=== PATIENT | female | born 1965 | race Caucasian/White ===

== ENCOUNTER → 2019-11-21 12:55 | Outpatient (CLI) | payer OTHER, SELFPAY ==
[2018-12-19 13:05] VITALS: BMI 30.9
[2019-11-21 15:14] LABS: Absolute Lymphocyte Count 2.87 X10^3/uL (0.83-4.51); Absolute Neutrophil Count 3.6 X10^3/uL (2.0-7.7); Basophil# 0.05 X10^3/uL; Basophil% 0.7 % (0-1); Eosinophil# 0.18 X10^3/uL; Eosinophils% 2.5 % (0-5); Hemoglobin 13.9 g/dL (12.0-15.0); Lymphocyte # 2.87 X10^3/ul (4.0); Lymphocyte % 39.6 % (19-41); Mean Corp Hgb Conc 31.6 g/dL (32-36); Mean Corpuscular Hgb 29.8 pg (27.0-32.0); Mean Corpuscular Volume 94.4 fL (81-99); Mean Platelet Vol. 10.6 fl (6.2-12.0); Monocyte# 0.49 X10^3/uL; Monocyte% 6.8 % (0-10); NRBC Flagged by Analyzer 0 % (0-5); Neutrophil # 3.64 X10^3/uL (2.7-7.7); Neutrophil % 50.1 % (47-70); Platelet Count 362 K/mm3 (150-450); RBC Distribution Width CV 12.1 % (11.6-14.6); RBC Distribution Width SD 42.4 fl (35.1-43.9); Red Blood Count 4.66 M/mm3 (4.2-5.4); White Blood Count 7.3 K/mm3 (4.4-11.0)
[2019-11-21 15:48] LABS: AST(SGOT) 25 U/L (15-37); Alanine Aminotransfer ALT/SGPT 25 U/L (13-56); Albumin, Serum 3.6 g/dL (3.2-5.0); Alkaline Phosphatase 86 U/L (45-117); Amylase 28 U/L (25-115); Anion Gap 8 (5-15); BUN 10 mg/dL (7-18); BUN/Creat Ratio 10.5 RATIO (10-20); Calcium,Total 8.9 mg/dL (8.5-10.1); Chloride 100 mmol/L (98-107); Creatinine, Serum 0.95 mg/dL (0.55-1.02); EST Glomerular Filtration Rate 65 mL/min (>60); Est Glom Filt Rate - Afr Amer 79 mL/min (>60); Globulin 3.7 g/dL (2.2-4.2); Glucose 86 mg/dL (74-106); Lipase 78 U/L (73-393); Potassium 3.9 mmol/L (3.5-5.1); Protein, Total 7.3 g/dL (6.4-8.2); Sodium Level 134 mmol/L (136-145)
== END ==
PROVIDERS: PCP Family Medicine; Referring Provider Family Medicine; Visit Provider Family Medicine
DX: R10.9 Unspecified abdominal pain (principal)
CPT/HCPCS: 36415; 80053; 82150; 83690; 85025

== ENCOUNTER → 2019-12-07 07:52 | Outpatient (CLI) | payer OTHER, SELFPAY ==
[2018-12-19 13:05] VITALS: BMI 30.9
--- NOTE | 2019-12-07 07:55 | US_ITS ---
STUDY: ABDOMINAL ULTRASOUND - RIGHT UPPER QUADRANT REASON FOR VISIT: Female, 54 years old RUQ PAIN TECHNIQUE: Ultrasound evaluation of the right upper quadrant was performed with real-time and static gilman-scale imaging. TECHNICAL QUALITY: Adequate. COMPARISON: None. FINDINGS: Liver: The liver measures 13.1 cm. There is increased echogenicity consistent with fatty infiltration. The bile ducts are within normal limits. There is hepatic color flow. The direction of portal flow is hepatopetal. There is no demonstrated mass lesion. Gallbladder: Normal distended gallbladder. The gallbladder wall measures 2 mm. There is a negative sonographic Gallagher''s sign. There is no pericholecystic fluid. There are multiple echogenic structures within the gallbladder, consistent with multiple gallstones. Common Bile Duct (C.B.D.): The common bile duct measures 3 mm. Pancreas: Normal size of the head, body and tail of the pancreas. There is normal echogenicity of the pancreas. There is no demonstrated pancreatic mass or cyst. Right Kidney: Normal size of the right kidney. The right kidney measures 9.7 cm. Normal renal cortex. The right cortex measures 1. cm. There is no demonstrated renal mass or cyst. There is no right hydronephrosis. US/Abdomen Limited IMPRESSION: 1. Cholelithiasis. 2. Fatty infiltration liver. Electronically Signed: Tonio Bar MD at 17:04 EDT Tel , Service support ,
== END ==
PROVIDERS: PCP Family Medicine; Referring Provider Family Medicine; Visit Provider Family Medicine
DX: R10.9 Unspecified abdominal pain (principal)
CPT/HCPCS: 76705

== ENCOUNTER 2020-01-02 09:55 | Day surgery (SDC) | payer OTHER, SELFPAY ==
[2019-12-19 13:53] VITALS: BMI 29.7
--- NOTE | 2020-01-02 07:39 | HP_ITS ---
Intake Vital Signs 12/19/19 Height 5 ft 5 in 12/19/19 Weight: 179 lb 2 oz 12/19/19 BMI 29.7 12/19/19 BP 138/84 H 12/19/19 Blood Pressure Location Rt brachial 12/19/19 Position Sitting 12/19/19 Respiration 18 12/19/19 Pulse 112 H 12/19/19 Pulse Source Monitor 12/19/19 Temp 97.4 F L 12/19/19 Temp Source Temporal 12/19/19 Pulse Oximetry (%) 96 12/19/19 Oxygen Delivery Method room air Intake Visit Reasons: Gall Stones Chief Complaint: cholelithiasis Freight Weigher Required: No Is patient in pain?: No Allergies Sulfa (Sulfonamide Antibiotics) Adverse Reaction (Verified 12/19/19 13:56) Swelling Medications acetaminophen 500 mg tablet 1,000 mg PO DAILY PRN tab 12/19/19 [History Confirmed 12/19/19] desvenlafaxine 100 mg tablet,extended release 24 hr 100 mg PO DAILY 12/19/19 [History Confirmed 12/19/19] ibuprofen 800 mg tablet 800 mg PO DAILY PRN tab 12/19/19 [History Confirmed 12/19/19] pantoprazole 40 mg tablet,delayed release 40 mg PO DAILY #30 tab 12/19/19 [Rx Confirmed 12/19/19] PFSH Medical History URI, acute (Acute) Abdominal bloating (Acute) Anxiety and depression (Acute) Belching (Acute) Cholelithiasis (Acute) Diarrhea (Acute) History of stroke (Acute) Nausea (Acute) history of heart surgery as child (Acute) Chronic neck and back pain (Chronic) Surgical History (Updated 12/19/19 @ 13:51 by Myra Hanson) History of heart surgery (Acute) Family History (Updated 12/19/19 @ 13:53 by Myra Hanson) Aunt Breast cancer Grandfather Colon cancer Mother Cancer kidney cancer Hypertension Kidney disease Father Diabetes Social History (Updated 12/19/19 @ 14:[address] Deepika Werner MD) Smoking Status: Former smoker alcohol intake: never substance use type: does not use HPI HPI HPI: OLIVIA SALINAS, is a 54 F who presents to the office today for HPI HPI Surgical H&P: Yes HPI: OLIVIA SALINAS, is a 54 F who presents to the office today for gallstones. Patient states about 5 weeks ago she ate at [facility] and had diarrhea, nausea, vomiting, fever, chills, mid abdominal pain/pressure and abdominal bloating question whether she had food poisoning. However since then patient continues to have the abdominal pressure/some aching and early satiety patient also complains of belching. Patient states currently her stools are formed smaller in size but she is also not eating much. Was occasionally having loose stools. Patient will have occasional nausea and vomiting. Patient states her abdominal aching or pressures can get up to a 6/10. States it can be worse after eating but does not matter what she has to eat. Patient had an ultrasound the gallbladder which showed a few small gallstones normal wall, no pericholecystic fluid, normal common bile duct. Patient's labs white blood cell count and LFTs were within normal range. ROS General General: Yes weight change and fatigue; no appetite, colon cancer, breast cancer or weakness HEENT HEENT: No difficulty swallowing, eye injury, eye surgery, swollen glands or hoarseness Endo Endocrine: No thyroid disease, diabetes mellitus, thyroid cancer, Hair loss, heat intolerance or cold intolerance Skin Skin: No rash or changing moles Breast Breast: No left breast lump, right breast lump, nipple discharge, breast pain, abnormal mammogram, abnormal US or breast enlargement Musc Musculoskeletal: No back problems, arthritis, rheumatoid arthritis, gout or joint pain Cardio Cardiovascular: No pacemaker, heart disease, atrial fibrillation, high blood pressure, heart attack, heart stent, palpitations, shortness of breat with exertion or chest pain Psych Psychiatric: Yes depression and anxiety; no hearing voices Resp Respiratory: No shortness of breath, No sleep apnea, No cough, No COPD, No asthma, No emphysema, No wheezing Gastro Gastrointestinal: Yes abdominal pain, Yes nausea or vomiting, Yes diarrhea, No constipation, No blood in stool, No acid reflux, No hemorrhoids, No ulcers, Yes gallbladder problem, No black,tarry stools Jai Hematologic: No blood thinners, No blood disorders, No bleeding, No anemia, No blood clots Neuro Neurologic: No system reviewed and no additional complaints, except as docu, No as per HPI, No abnormal walking, No abnormal hearing, No abnormal movements, No abnormal speech, No behavioral changes, No burning sensations, No confusion, No seizure-like activity, No unsteadiness, No dizziness, No localized weakness, No frequent falls, No headache(s), No lack of coordination, No loss of vision, No memory loss, No numbness, No other visual disturbances, No radiating pain, No restless legs, No sensory deficit, No fainting, No tingling, No tremor(s), No weakness, Yes other (Stroke) Exam Const General: cooperative, comfortable, no acute distress, well developed Chest Breast Palpation: No nipple discharge Resp Effort & Inspection: normal respiratory effort Cardio Rate: regular rate GI Inspection: non-distended Palpation: soft, no guarding, tender (On exam minimal tender RLQ/mid quad--but repeat nontender) Assessment & Plan Problems 1. Abdominal bloating R14.0 2. Abdominal pressure R10.9 3. N&V (nausea and vomiting) R11.2 4. Cholelithiasis K80.20 Plan Patient does seem to have the pressure and bloating even when she has not ate. The history is a little atypical for gallstones and the gallbladder also appears normal on ultrasound with a few gallstones but normal wall, no pericholecystic fluid. Discussed with patient this could be more of a gastric etiology. We will plan to start patient on Protonix 40 mg p.o. daily okay to take famotidine 20 mg p.o. daily for the first couple of days as well. We will plan for an EGD. Discussed with patient that if her symptoms are not improved and the EGD is negative would plan to remove her gallbladder at that time. Patient was agreeable with plan. I have discussed the above with the patient. I have offered the patient EGD for evaluation. I have explained the risks/benefits of the procedure and described the procedure. I have discussed the risks with the patient, including but not limited to: infection, bleeding, perforation of the GI tract requiring emergency surgery, inability to complete the procedure, injury to any internal organs, complications of anesthesia, etc. - the patient understands and agrees to proceed. I have answered all the patient's questions to the patient's satisfaction and the patient has no further questions. Deepika Werner M.D. Pager: [phone] [facility] [address] [place] [address], [facility], [address] [place] [address] Office: [phone] Orders Orders: EGD Today Medications New: pantoprazole 40 mg PO DAILY 30 tabs 1RF Coding Level of Care Code Off vis,new,level 3 Diagnoses Abdominal bloating R14.0 Abdominal pressure R10.9 N&V (nausea and vomiting) R11.2 Cholelithiasis K80.20 COVID (Procedure Consent) Procedure Criteria Procedure Criteria: Yes Elective The surgeon/proceduralist and patient have discussed in detail the risk of exposure to and/or potential harm posed by the COVID-19 virus with having a surgery/procedure at this time versus the risk of? delaying the surgery/procedure. It is not possible to know either the risk of delaying the surgery or procedure or chance of getting an infection with perfect accuracy, but a joint decision was made between the patient and the surgeon/proceduralist ?to proceed at this time with the scheduled surgery/procedure as indicated on the consent form. I have re-examined the patient. There are no clinical changes since date of exam.
[2020-01-02 10:11] VITALS: BP 123/81; PULSE 85; RESP 16; TEMP 36; O2SAT 99; BMI 29.4
[2020-01-02] MEDS: Lactated Ringers 1,000 ML 100 ML IV (10:26)
--- NOTE | 2020-01-02 10:45 | IMM_PTH ---
PATIENT: OLIVIA SALINAS LOC: EN U#:[id number] AGE/SX: 54/F ROOM: RE01/02/[address]: Dr. Deepika Werner MD : 1965 BED: DIS: 01/02/2020 SPEC #: [id number] RECD: 01/03/20 08:50 STATUS: CATHERINE REQ #: [id number] NATHAN: 01/02/20 10:[address]: Deepika Werner DEPT: IMMUNOHISTOCHEMISTRY RECD BY: Rachel Stephenson ENTERED: 01/03/20 08:51 SP TYPE: IMMUNO OTHR DR: Dr. Roni Bowman MD Tissues: A - Pyloric portion of stomach Procedures: H Pylori (initial) PHYSICIAN & INSTITUTION [place] [address] SPECIMEN INFORMATION: Tissue Source: A - Prepyloric biopsy Clinical Info: Abdominal bloating and pressure, nausea, vomiting, cholelithiasis Specimen Number: [id number] CPT code: 86866 METHODOLOGY: Deparaffinized sections of prefer/formalin-fixed tissue or PAP/DQ stained slides are incubated with monoclonal/polyclonal antibodies/oligonucleotide probes. Localization is made via biotin free immunoperoxidase method. Appropriate controls are performed and reacted as expected. Results on target cell population are indicated in the following table: RESULTS: ANTIBODY / CLONE RESULT Block A H Pylori (polyclonal) negative These tests were developed and their performance characteristics determined by [facility]. They may not have been cleared or approved by the U.S. Food and Drug Administration. The FDA has determined that such clearance or approval is not necessary. INTERPRETATION: A. Prepyloric biopsy: Negative for Helicobacter pylori organisms. AM:nae 01/04/20
--- NOTE | 2020-01-02 10:45 | EGD_PTH ---
PATIENT: OLIVIA SALINAS LOC: EN U#:[id number] AGE/SX: 54/F ROOM: RE01/02/[address]: Dr. Deepika Werner MD : 1965 BED: DIS: 01/02/2020 SPEC #: [id number] RECD: 01/02/20 13:27 STATUS: CATHERINE REHiro #: [id number] NATHAN: 01/02/20 10:[address]: Deepika Werner DEPT: SURGICAL PATHOLOGY RECD BY: Holly Chilel ENTERED: 01/03/20 07:27 SP TYPE: EGD BIOPSY JOSE DR: Dr. Roni Bowman MD Tissues: A - Gastric mucous membrane B - Gastric mucous membrane Procedures: Special Stain Group II Surgery Specimen Level IV Alcian Blue/PAS (control) HEADER OPERATION: EGD ([facility] [place] PRE-OP DIAGNOSIS: Abdominal bloating and pressure, nausea, vomiting, cholelithiasis TISSUE SUBMITTED: A - Prepyloric biopsy for H. pylori and pathology, B - GE junction biopsy MICROSCOPIC DIAGNOSIS A. Prepyloric biopsy: Chronic gastritis. See comment. B. GE junction, biopsy: A fragment of gastric mucosa with chronic inflammation. No evidence of goblet cell metaplasia. See comment. IMMANUEL:nae 01/04/20 COMMENT A. The results of immunohistochemistry for Helicobacter pylori will be reported separately ([id number]). B. Alcian blue/PAS stain with matched control supports the above diagnosis. MICROSCOPIC DESCRIPTION Slides are reviewed. GROSS DESCRIPTION A - Received in fixative is one container labeled with the patient's name and designated prepyloric biopsy. The specimen consists of two irregular fragments of light brown soft tissue that in aggregate measure 0.5 x 0.5 x 0.1 cm. The specimen is totally submitted in one cassette. B - Received in fixative is one container labeled with the patient's name and designated GE junction biopsy. The specimen consists of one irregular fragment of light brown soft tissue that measures 0.5 x 0.2 x 0.1 cm. The specimen is totally submitted in one cassette. / AM:nae 01/03/20 TC:3 CPT: 62505 x2, 77162
[2020-01-02 11:49] VITALS: BP 105/69; BP 123/81; PULSE 86; RESP 16; TEMP 36.8; O2SAT 97
--- NOTE | 2020-01-02 11:52 | OP.EGD_ITS ---
Patient Name: Radha Hernandez Procedure Date: 01/02/2020 11:17 AM Date of : 1965 Age: 54 Procedure: Upper GI endoscopy Indications: Epigastric abdominal pain Providers: Deepika Werner MD Referring MD: Christopher Bowman Medicines: Monitored Anesthesia Care Patient Profile: This is a 54 year old female. Complications: No immediate complications. Procedure: Pre-Anesthesia Assessment: - Prior to the procedure, a History and Physical was performed, and patient medications and allergies were reviewed. The patient's tolerance of previous anesthesia was also reviewed. The risks and benefits of the procedure and the sedation options and risks were discussed with the patient. All questions were answered, and informed consent was obtained. Prior Anticoagulants: The patient has taken no previous anticoagulant or antiplatelet agents. ASA Grade Assessment: Per anesthesia. After reviewing the risks and benefits, the patient was deemed in satisfactory condition to undergo the procedure. After obtaining informed consent, the endoscope was passed under direct vision. Throughout the procedure, the patient's blood pressure, pulse, and oxygen saturations were monitored continuously. The Endoscope was introduced through the mouth, and advanced to the second part of duodenum. The upper GI endoscopy was accomplished without difficulty. The patient tolerated the procedure well. Scope In: 11:33:42 AM Scope Out: 11:41:51 AM Total Procedure Duration Time 0 hours 8 minutes 9 seconds Findings: The Z-line was variable and was found 35 cm from the incisors. Biopsies were taken with a cold forceps for histology. Localized mildly erythematous mucosa without bleeding was found in the prepyloric region of the stomach. Biopsies were taken with a cold forceps for histology. Biopsies were taken with a cold forceps for Helicobacter pylori cultures. A few localized, less than 5 mm non-bleeding erosions were found in the prepyloric region of the stomach. There were no stigmata of recent bleeding. Biopsies were taken with a cold forceps for histology. Biopsies were taken with a cold forceps for Helicobacter pylori cultures. The cardia and gastric fundus were normal on retroflexion. Mildly erythematous mucosa without active bleeding and with no stigmata of bleeding was found in the duodenal bulb. Impression: - Z-line variable, 35 cm from the incisors. Biopsied. - Erythematous mucosa in the prepyloric region of the stomach. Biopsied. - Non-bleeding erosive gastropathy. Biopsied. - Erythematous duodenopathy. Recommendation: - Await pathology results. - Discharge patient to home. - Resume previous diet. - Use Protonix (pantoprazole) 40 mg PO daily. - Continue present medications. Procedure Code(s): --- Professional --- 47142, Esophagogastroduodenoscopy, flexible, transoral; with biopsy, single or multiple Diagnosis Code(s): --- Professional --- K22.8, Other specified diseases of esophagus K31.89, Other diseases of stomach and duodenum R10.13, Epigastric pain CPT copyright 2017 [employer]. All rights reserved. The codes documented in this report are preliminary and upon cpc coder review may be revised to meet current compliance requirements. MD Deepika Hernandes MD 01/02/2020 11:52:15 AM This report has been signed electronically. Number of Addenda: 0 Note Initiated On: 01/02/2020 11:17 AM
--- NOTE | 2020-01-02 11:52 | OP.CCLET_ITS ---
01/02/2020 Christopher Bowman [address] [place] [address] Re : Upper GI endoscopy procedure for Radha Hernandez Dear Dr. Bowman This procedure was performed on Thursday, January 02, 2020. My impressions and recommendations are as follows: Impressions : - Z-line variable, 35 cm from the incisors. Biopsied. - Erythematous mucosa in the prepyloric region of the stomach. Biopsied. - Non-bleeding erosive gastropathy. Biopsied. - Erythematous duodenopathy. Recommendations : - Await pathology results. - Discharge patient to home. - Resume previous diet. - Use Protonix (pantoprazole) 40 mg PO daily. - Continue present medications. My findings are described in the full procedure note, which is enclosed. If I can be of further assistance, please feel free to contact me at Doctor phone number(s): , Work: . Sincerely, MD Deepika Hernandes MD 01/02/2020 11:52:15 AM This report has been signed electronically.
[2020-01-02 11:55] VITALS: BP 104/77; BP 123/81; PULSE 83; RESP 16; O2SAT 99
[2020-01-02 12:05] VITALS: BP 117/82; BP 123/81; PULSE 71; RESP 16; TEMP 36.4; O2SAT 97
[2020-01-02 12:44] VITALS: BP 123/81
== END 2020-01-02 13:10 | disposition home or self-care (01) ==
LOC: EN 09:56 → AC 09:56
PROVIDERS: PCP Family Medicine; Referring Provider Family Medicine; Visit Provider Surgery
PROC: 0DJ08ZZ Inspection of Upper Intestinal Tract, Via Natural or Artificial Opening Endoscopic (ICD-10-PCS; CPT 43235; principal; 2020-01-02 10:40)
DX: K29.50 Unspecified chronic gastritis without bleeding (principal); Z20.828 Contact with and (suspected) exposure to other viral communicable diseases; K31.89 Other diseases of stomach and duodenum; K22.8 Other specified diseases of esophagus; Z79.899 Other long term (current) drug therapy; F17.200 Nicotine dependence, unspecified, uncomplicated
CPT/HCPCS: 43239; 87426; 88305; 88313; 88342; C9803; J7120

== ENCOUNTER → 2020-05-06 16:42 | Outpatient (CLI) | payer OTHER, SELFPAY ==
--- NOTE | 2020-05-06 16:47 | RAD_ITS ---
STUDY: X-RAY - LEFT SHOULDER REASON FOR EXAM: Female, 54 years old. Ane. Limited range of motion. TECHNIQUE: 4 view(s) of the shoulder. COMPARISON: None. FINDINGS: Normal glenohumeral articulation. There is degenerative arthrosis of the acromioclavicular joint without inferior osseous spur formation. There is a curved undersurface of the acromion consistent with a Type II morphology. There is no acute fracture, dislocation or destructive osseous pathology. Normal humeral head and visualized proximal humerus. The soft tissue structures are unremarkable. Normal visualized pulmonary apex. RAD/Shoulder min 2 Views IMPRESSION: Degenerative changes of the acromioclavicular joint. Electronically Signed: Ole Baez DO at 22:42 EDT Tel [phone], Service support ,
== END ==
PROVIDERS: PCP Family Medicine; Referring Provider Family Medicine; Visit Provider Family Medicine
DX: M25.512 Pain in left shoulder (principal)
CPT/HCPCS: 73030

== ENCOUNTER → 2020-06-03 | Outpatient (CLI) | payer OTHER, SELFPAY ==
[2020-06-03 14:32] VITALS: BMI 29.4
[2020-06-06 16:20] LABS: HPV APTIMA, High Risk Positive (Negative)
== END | disposition home or self-care (01) ==
LOC: LABSPEC 16:01
PROVIDERS: PCP Family Medicine; Referring Provider Nurse Practitioner Women's Health; Visit Provider Nurse Practitioner Women's Health
DX: Z12.4 Encounter for screening for malignant neoplasm of cervix (principal)
CPT/HCPCS: 87624; 88175; G0145

== ENCOUNTER → 2020-06-19 | Outpatient (CLI) | payer OTHER, SELFPAY ==
--- NOTE | 2020-06-19 | IMM_PTH ---
PATIENT: OLIVIA SALINAS LOC: [facility] U#:[id number] AGE/SX: 54/F ROOM: RE06/19/[address]: Dr. Brooke Deras MD : 1965 BED: DIS: 06/19/2020 SPEC #: [id number] RECD: 06/20/20 12:08 STATUS: CATHERINE REQ #: [id number] NATHAN: 06/19/20 00:[address]: Brooke Deras DEPT: IMMUNOHISTOCHEMISTRY RECD BY: Rachel Stephenson ENTERED: 06/20/20 12:09 SP TYPE: IMMUNO OTHR DR: Dr. Roni Bowman MD Tissues: A - Uterine cervix, NOS B - Endocervical Procedures: p16 (initial) KI-67 (add) PHYSICIAN & INSTITUTION [place] [address] SPECIMEN INFORMATION: Tissue Source: A - Cervix at 12, 3 & 9 o?clock, B - ECC Clinical Info: ASCUS, HPV positive Specimen Number: [id number] A & B CPT code: 34491 x2, 06721 x2 METHODOLOGY: Deparaffinized sections of prefer/formalin-fixed tissue or PAP/DQ stained slides are incubated with monoclonal/polyclonal antibodies/oligonucleotide probes. Localization is made via biotin free immunoperoxidase method. Appropriate controls are performed and reacted as expected. Results on target cell population are indicated in the following table: RESULTS: ANTIBODY / CLONE RESULT Block A P16 (E6H4) positive, block staining Ki-67 (30-9) positive, high Block B P16 (E6H4) positive, block staining Ki-67 (30-9) positive, high These tests were developed and their performance characteristics determined by [facility]. They may not have been cleared or approved by the U.S. Food and Drug Administration. The FDA has determined that such clearance or approval is not necessary. The above immunohistochemical/dualISH markers are ordered and reviewed by the Pathologist. INTERPRETATION: A. Cervix at 12, 3 & 9 o?clock, biopsy: Moderate to severe squamous dysplasia. B. ECC: Severe squamous dysplasia. SJ:nae 06/23/2020
--- NOTE | 2020-06-19 | CER_PTH ---
PATIENT: OLIVIA SALINAS LOC: [facility]#:[id number] AGE/SX: 54/F ROOM: RE06/19/[address]: Dr. Brooke Deras MD : 1965 BED: DIS: 06/19/2020 SPEC #: [id number] RECD: 06/19/20 13:58 STATUS: CATHERINE REHiro #: [id number] NATHAN: 06/19/20 00:[address]: Brooke Deras DEPT: SURGICAL PATHOLOGY RECD BY: Marco Monae ENTERED: 06/19/20 13:59 SP TYPE: CERV OTHR DR: Dr. Roni Bowman MD Tissues: A - Uterine cervix, NOS B - Uterine cervix, NOS Procedures: Surgery Specimen Level IV HEADER OPERATION: Colposcopy PRE-OP DIAGNOSIS: ASCUS, HPV positive TISSUE SUBMITTED: A - 12, 3 and 9 o?clock, B - ECC MICROSCOPIC DIAGNOSIS A. 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 Chronic inflammation. See comment. B. ECC: Detached unoriented fragment of squamous epithelium with severe squamous dysplasia (HGSIL and SUMAN III). Fragments of benign endocervical epithelium, blood and mucous. See comment. SJ:rg 06/20/2020 COMMENT A & B. Immunohistochemistry ([id number]) for surrogate HPV marker (p16) supports the above diagnosis. Case has been reviewed in consultation with Dr. Woods who concurs with the above diagnosis. IDC:AM MICROSCOPIC DESCRIPTION Slides are reviewed. GROSS DESCRIPTION A - Received in fixative is one container labeled with the patient's name and designated 12, 3 and 9 o'clock. The specimen consists of multiple irregular fragments of brown-pink soft tissue mixed with mucoid tissue that in aggregate measure 1 x 1 x 0.2 cm. The specimen is totally submitted in one cassette. B - Received in fixative is one container labeled with the patient's name and designated ECC. The specimen consists of a scant amount of soft tissue. The specimen is totally submitted for cell block preparation. / AVANI:nae 06/19/20 TC:1 CPT: 34713 x2
[2020-06-19 09:21] VITALS: BMI 29.5
== END | disposition home or self-care (01) ==
LOC: LABSPEC 13:29
PROVIDERS: PCP Family Medicine; Visit Provider Obstetrics & Gynecology
DX: R87.619 Unspecified abnormal cytological findings in specimens from cervix uteri (principal)
CPT/HCPCS: 88305; 88341; 88342

== ENCOUNTER 2020-06-23 15:00 | Outpatient (RCR) | payer OTHER, SELFPAY ==
--- NOTE | 2020-03-06 13:41 | HP.PTEVAL_ITS ---
Patient's Visit Information OLIVIA SALINAS is a 54 year old F referred to Physical Therapy by Dr. Christopher Bowman MD with a diagnosis of L shoulder bursitis. Date of Evaluation: 03/06/20 Physical Therapist: Kevin Maldonado, DPT, OCS, CSCS - Visit Plan Frequency: 3x /Week Duration: 2-4 Weeks Plan: 3x/week for 2-4 weeks for. 1. activity modification for impingemnet L shoulder. 2. US nonthermal L shoulder biceps tendon. 3. grade 1-2 g-h mobs for pain and CFM as needed. PROM L shoulder. 4. postural and RC strength to HEP to [place] as she improves. - Subjective L shoulder pain since early November into upper arm. Worsened as time went on but insidious onset. Was doing a lot of home remodellign at the time but no specific incident. Is R handed. Pain is upper arm and shoulder. Hard to get hand behind back and hard to reach [place]. Hurts to try adn push these further. Comfortable at rest. Pain is up to 9/10 if tries bjorn move it too far. Keeps up at night if rolls on it. 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 Basic ADLs is hard to put bra on and hard to get shirt off. Reaching up into closet is hard but she uses strong hand. Hobbies include studying language which she can do. Home improvements stopped due to shoulder. - Pain R shouldr Pain Intensity (Out of 10): 0 Pain Intensity Range: 0, 9 - Objective Forward head adn shoulder posture, protracted scap. Cervical aROM WFL adn painfree. elbow and wrist AROM WFL adn painfree. + speeds, + HK, + neer on L and - ext rotation lag test. Tender max over biceps tendon and supra on L. AROM R shoulder WFL, L shoulder flexion 125, abd 125, er 35, IR PSIS, PROM slightly better but firm end feel and stiffened up. reflexes 2/3 bi and tri B. Sensation WNl to gross light touch B. Strength is L shoulder flex abd painful and 3/5. ext rotation, max painful 3, IR 34-. R shoulder 4+/5 without pain. - Goals Goal 1:: shave armpit and take shirt off without noticing L arm pain. Goal 2:: Pt feel 75% better in shoulder pain at 2/10 at worst adn manageable Goal Time Frame: 2-4 Weeks Goal 3:: Quick dash 15 or less Goal Time Frame: 2-4 Weeks - Rehabilitation Potential Physical Therapy Diagnosis: L shuolder pain bursitis vs biceps tendonitis. Rehabilitation Potential: Good - Anticipated Interventions Patient/Client Instruction: Educate patient on: Condition, Plan of Care For the Purpose of:: To decrease pain, To increase ROM, To increase tolerance to activity/condition/position Therapeutic Exercise to Include: Strength training, Postural training, Flexibilty training, Passive ROM, Active ROM, Scapular Strength/Stabilization For the Purpose of:: To decrease pain, To increase ROM, To improve muscle performance and motor function, To increase tolerance to activity/condition/position Manual Therapy Techniques to Include: Mobilization, Passive ROM, Soft tissue mobilization For the Purpose of:: To decrease pain, To increase ROM Cryotherapy (ice pack, ice massage): Yes Ultrasound (thermal/non thermal): Yes - non thermal For the Purpose of:: To decrease pain, To decrease swelling/inflammation Thank you for the opportunity to evaluate your patient. For Medicare and Medicare HMO plans, please review the plan of care and approve it. It will need to be FAXED BACK to us at [phone] for Medicare purposes. For Medicare only, by signing this I certify the plan of care. Please let me know if there are questions or concerns regarding this plan of care. Physician Signature: Date:
--- NOTE | 2020-03-28 09:53 | HP.PTREVAL ---
Dr. Christopher Bowman MD, It has been my pleasure to treat OLIVIA SALINAS over the last 7 visits for L shoulder bursitis. Please see the progress note below for an update on the physical therapy plan of care! Subjective: Better. I have more movement adn behind back better. Still challenging on sports bra. Can lift high. Obeying activity modification. Doing band and stretches at home. Objective/Function: 130 flexion adn 105 abd AROM . PROM to 130 and 15 but firm endfeel. Capsulitis type endfeel. Strength is 4/5 withotu pain except slight with flexion. ER 45 AROM and 50 PROM. IR to PSIS, improving. Overall paina nd strength better but feeling tight end ranges of motion despite some rOM improvements in measurements. Appropriate to continue 2 weeks Plan Plan: Pt can do strength at home. Please focus on MH, grade 4 g-h mobs and PROM to felxions/abd, er, IR and progress HEP of aggressive ROM(gave flexion today) May do Pulleys and stick also. Goals appropriate, fair prognosis Goals Goal 1:: shave armpit and take shirt off without noticing L arm pain. Goal Progress: Progressing Goal 2:: Pt feel 75% better in shoulder pain at 2/10 at worst adn manageable Goal Time Frame: 2-4 Weeks Goal Progress: Progressing Goal 3:: Quick dash 15 or less Goal Time Frame: 2-4 Weeks Goal Progress: Progressing Goal 4:: Full aROM to 150 flexiona dn abd and 65 ext rotation without pain to facilitate jog bra donning and reaching into cupboard. Goal Time Frame: 2-4 Weeks Goal Progress: NEW GOAL Anticipated Interventions Patient/Client Instruction: Educate patient on: Condition, Plan of Care For the Purpose of:: To decrease pain, To increase ROM, To increase tolerance to activity/condition/position Therapeutic Exercise to Include: Strength training, Postural training, Flexibilty training, Passive ROM, Active ROM, Scapular Strength/Stabilization For the Purpose of:: To decrease pain, To increase ROM, To improve muscle performance and motor function, To increase tolerance to activity/condition/position Manual Therapy Techniques to Include: Mobilization, Passive ROM, Soft tissue mobilization For the Purpose of:: To decrease pain, To increase ROM Cryotherapy (ice pack, ice massage): Yes Ultrasound (thermal/non thermal): Yes - non thermal For the Purpose of:: To decrease pain, To decrease swelling/inflammation Please do not hesitate to contact me at [phone] by phone or if you have questions or concerns regarding this new plan of care! Sincerely, Kevin Maldonado, DPT, OCS, CSCS
--- NOTE | 2020-04-16 14:33 | HP.PTREVAL_ITS ---
Dr. Christopher Bowman MD, It has been my pleasure to treat OLIVIA SALINAS over the last 12 visits for L shoulder bursitis. Please see the progress note below for an update on the physical therapy plan of care! Subjective: Definitely helping. ROM behind her is improving. It is also not as aggravating for quite as long. Had eye surgery and had to caancel last appointment. It ached to sleep last night but did not keep her up 4/10. Activities are nomral, they just hurt. wants to schedule with dr. Bowman for next option. No pain at rest, must be moving to be painful. Getting stengthening and stretching in daily. Using GTB and YTB 3x10 Objective/Function: AROM:flexion 130 adn abduction 100 50 ext rotation and PSIS comfortably IR, hurts to push past this. ROM is SLOWLY improving. strengtha dn resisted movements of L shoulder not bad at 4/5 adn no pain with rotations, min pain with flexion and abduction. Compensates slightly by elevating L scap. Presents like adhesive capsulitis now. Plan Plan: Recommend back to doctor for other options. She will continue stretching at home 2x/day with farzaneh and sterngthening with band daily. F/u 2-3 weeks for progression of stretches and sterengthe as needed, prior if condition worsens. Pt to contact doctor regarding f/u/next step. Questionable prognosis! Goals Goal 1:: shave armpit and take shirt off without noticing L arm pain. Goal Progress: Goal Met Goal 2:: Pt feel 75% better in shoulder pain at 2/10 at worst adn manageable Goal Time Frame: 2-4 Weeks Goal Progress: Not Progressing Goal 3:: Quick dash 15 or less Goal Time Frame: 2-4 Weeks Goal Progress: Progressing Goal 4:: Full aROM to 150 flexiona dn abd and 65 ext rotation without pain to facilitate jog bra donning and reaching into cupboard. Goal Time Frame: 2-4 Weeks Goal Progress: Progressing Anticipated Interventions Patient/Client Instruction: Educate patient on: Condition, Plan of Care For the Purpose of:: To decrease pain, To increase ROM, To increase tolerance to activity/condition/position Therapeutic Exercise to Include: Strength training, Postural training, Flexibi lty training, Passive ROM, Active ROM, Scapular Strength/Stabilization For the Purpose of:: To decrease pain, To increase ROM, To improve muscle performance and motor function, To increase tolerance to activity/condition/position Manual Therapy Techniques to Include: Mobilization, Passive ROM, Soft tissue mobilization For the Purpose of:: To decrease pain, To increase ROM Cryotherapy (ice pack, ice massage): Yes Ultrasound (thermal/non thermal): Yes - non thermal For the Purpose of:: To decrease pain, To decrease swelling/inflammation Please do not hesitate to contact me at [phone] by phone or if you have questions or concerns regarding this new plan of care! Sincerely, Kevin Maldonado, DPT, OCS, CSCS
--- NOTE | 2020-05-22 15:24 | HP.PTREVAL_ITS ---
Dr. Christopher Bowman MD, It has been my pleasure to treat OLIVIA SALINAS over the last 13 visits for L shoulder bursitis. Please see the progress note below for an update on the physical therapy plan of care! 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 Gave injection cortisone a couple weeks ago. Motion feels better when reaching. Not getting excruciating pain or night aches anymore. Has been pretty comfortable for the last week. Activities are normal. Still just a little stiff. Doing end range PROM at home and continuing pulleys and bands. Doctor wants more therapy and surgeon is next option to manipulate. Objective/Function: 135 L abd, 133 flexion. R 70 ext rotation adn L 55. L5 IR with stretchy pain. Strength is near symmetrical adn not alot of pain with 4/5 rotations and 4- flexion abd B without increased pain. Some compensation in shoulder blade with elevation. Functional ROM with hand behind head and back but still feels tight. Overall injection helped and still needs more motion. Appropriate to cotninue PT 1-2x/week for 2-4 weeks with fair prognosis Plan Plan: f/u next session for measurement of abd, flex, ext rot and IR ROM and progress HEP if improved or increse therapy frequency for mobs and PROM in clinic if stagnant. Goals Goal 1:: shave armpit and take shirt off without noticing L arm pain. Goal Progress: Goal Met Goal 2:: Pt feel 75% better in shoulder pain at 2/10 at worst adn manageable Goal Time Frame: 2-4 Weeks Goal Progress: Progressing Goal 3:: Quick dash 15 or less Goal Time Frame: 2-4 Weeks Goal Progress: Progressing Goal 4:: Full aROM to 150 flexiona dn abd and 65 ext rotation without pain to facilitate jog bra donning and reaching into cupboard. Goal Time Frame: 2-4 Weeks Goal Progress: slow and appropriate Anticipated Interventions Patient/Client Instruction: Educate patient on: Condition, Plan of Care For the Purpose of:: To decrease pain, To increase ROM, To increase tolerance to activity/condition/position Therapeutic Exercise to Include: Strength training, Postural training, Flexibilty training, Passive ROM, Active ROM, Scapular Strength/Stabilization For the Purpose of:: To decrease pain, To increase ROM, To improve muscle performance and motor function, To increase tolerance to activity/con dition/position Manual Therapy Techniques to Include: Mobilization, Passive ROM, Soft tissue mobilization For the Purpose of:: To decrease pain, To increase ROM Cryotherapy (ice pack, ice massage): Yes Ultrasound (thermal/non thermal): Yes - non thermal For the Purpose of:: To decrease pain, To decrease swelling/inflammation Please do not hesitate to contact me at [phone] by phone or if you have questions or concerns regarding this new plan of care! Sincerely, Kevin Maldonado, DPT, OCS, CSCS
--- NOTE | 2020-06-02 15:23 | HP.PTREVAL ---
Dr. Christopher Bowman MD, It has been my pleasure to treat OLIVIA SALINAS over the last 14 visits for L shoulder bursitis. Please see the progress note below for an update on the physical therapy plan of care! Subjective: Hardly any pain until stretches it. Comfortable except when stretching. Can pull shirt down in back now. Up back is still hard. OH is pretty good although it still feels tight. .Sleep is OK. activities are pretty normal. Repetitive paint rolling got tired and arm got lazy. Objective/Function: Stiffness persists with slow improvement, functionally doing rather well adn pain much better. Strength is good in neutral position and painfree, only pain is to stretch. L flexion 136 R 144. L arm abduction 133 R is 152. ext rotation 48 L nd 60 R stiff but not painful. L5 L IR vs L2 R Plan Plan: F/U 3 weeks. Pt to ex at home as she is mostly apinfree adn fully functional just with some tightness. She will call if she is not improving and f/u in 3 weeks to measure and get back to doctor or d/c Goals Goal 1:: shave armpit and take shirt off without noticing L arm pain. Goal Progress: Goal Met Goal 2:: Pt feel 75% better in shoulder pain at 2/10 at worst adn manageable Goal Time Frame: 2-4 Weeks Goal Progress: Goal Met Goal 3:: Quick dash 15 or less Goal Time Frame: 2-4 Weeks Goal Progress: Progressing Goal 4:: Full aROM to 150 flexiona dn abd and 65 ext rotation without pain to facilitate jog bra donning and reaching into cupboard. Goal Time Frame: 2-4 Weeks Goal Progress: SLOW!! Anticipated Interventions Patient/Client Instruction: Educate patient on: Condition, Plan of Care For the Purpose of:: To decrease pain, To increase ROM, To increase tolerance to activity/condition/position Therapeutic Exercise to Include: Strength training, Postural training, Flexibilty training, Passive ROM, Active ROM, Scapular Strength/Stabilization For the Purpose of:: To decrease pain, To increase ROM, To improve muscle performance and motor function, To increase tolerance to activity/condition/position Manual Therapy Techniques to Include: Mobilization, Passive ROM, Soft tissue mobilization For the Purpose of:: To decrease pain, To increase ROM Cryotherapy (ice pack, ice massage): Yes Ultrasound (thermal/non thermal): Yes - non thermal For the Purpose of:: To decrease pain, To decrease swelling/inflammation Please do not hesitate to contact me at [phone] by phone or if you have questions or concerns regarding this new plan of care! Sincerely, Kevin Maldonado, DPT, OCS, CSCS
--- NOTE | 2020-06-23 15:18 | HP.PTDCSUM ---
It has been my pleasure to treat OLIVIA Angel SAURER referred by Dr. Christopher Bowman MD, with the diagnosis of L shoulder bursitis for a total of 15 visit(s). Discharge Date: 06/23/20 Please see the following information for a summary of their discharge status. Subjective: Doing exercises OK. No pain lately. Now and then maybe if she sneezed 1x. Sleep is OK. No acivities she cannot do. Doing HEP at home with GTB adn YTB adn getting easy. Motion getting better adn can reach behind her nowl. Reaching overhead well. No f/u with doctor scheduled. R shouldr Pain Intensity (Out of 10): 0 % Improvement: 95 Objective/Function: 146 flexion aROM, 140 abduction, 45 ext rotation adn L4 IR. 70 degrees IR at 80 abduction. Overall , good strength adn improving motion that is functional. Goal 1:: shave armpit and take shirt off without noticing L arm pain. Goal Progress: Goal Met Goal 2:: Pt feel 75% better in shoulder pain at 2/10 at worst adn manageable Goal Progress: 95%, met Goal 3:: Quick dash 15 or less Goal Progress: Goal Met Goal 4:: Full aROM to 150 flexiona dn abd and 65 ext rotation without pain to facilitate jog bra donning and reaching into cupboard. Goal Progress: Progressing Plan: d/c to HEP. Pt to contact doctor if pain returns. If there are questions or concerns regarding this patient's physical therapy, please feel free to call me at [phone]. Thank you for the referral of this patient. Sincerely, Kevin Maldonado, DPT, OCS, CSCS
== END 2020-06-23 19:00 | disposition home or self-care (01) ==
LOC: PT 15:00
PROVIDERS: PCP Family Medicine; Visit Provider Family Medicine
DX: M75.52 Bursitis of left shoulder (principal)
CPT/HCPCS: 97035; 97110; 97140; 97161; 97164; 97530

== ENCOUNTER → 2020-06-24 15:07 | Outpatient (CLI) | payer OTHER, SELFPAY ==
[2020-06-03 14:32] VITALS: BMI 29.4
[2020-06-19 09:21] VITALS: BMI 29.5
--- NOTE | 2020-06-24 15:08 | BI_ITS ---
MAMMOGRAPHY - BILATERAL SCREENING REASON FOR EXAM: Female, 54 years old. Routine annual screening examination. PERTINENT HISTORY: Aunt with breast cancer. TECHNIQUE: Digital bilateral breast litzy (3D mammographic acquisition) in the CC and MLO projections. 2-D mediolateral oblique (MLO) and craniocaudad (CC) views of both breasts were obtained. CAD: Full Field Digital Mammography with Computer Added Detection was performed. COMPARISON: No comparison mammograms available at this time. If any prior films become available, an addendum to this report can be generated. FINDINGS: Breast Composition: The breasts are heterogeneously dense, which may obscure small masses. There are no dominant masses or suspicious calcifications. There is a 4.6 mm x 5 mm well-defined nodule in the inferior medial aspect of the left breast. Correlation with ultrasound is recommended No other significant abnormalities are identified. BI/SCRN MAMM (CAD)W/LITZY BILAT IMPRESSION: 4.6 mm x 5 mm well-defined nodule in the inferior medial aspect of the left breast. Correlation with ultrasound is recommended. ASSESSMENT CATEGORY: BIRADS Category 0: Incomplete. Need additional imaging evaluation. A letter regarding these results will be sent to the patient by the facility within 30 days. Approximately 10% of breast cancers are not detected by mammography. A normal mammogram should not delay biopsy of a clinically suspicious abnormality. [id number] Electronically Signed: Rony Banegas MD at 15:48 EDT , Service support ,
== END ==
PROVIDERS: PCP Family Medicine; Referring Provider Nurse Practitioner Women's Health; Visit Provider Nurse Practitioner Women's Health
DX: Z12.31 Encounter for screening mammogram for malignant neoplasm of breast (principal)
CPT/HCPCS: 77063; 77067

== ENCOUNTER → 2020-06-26 10:55 | Outpatient (CLI) | payer OTHER, SELFPAY ==
[2020-06-25 08:57] VITALS: BMI 29.5
--- NOTE | 2020-06-26 10:56 | US_ITS ---
STUDY: ULTRASOUND BREAST - LEFT REASON FOR EXAM: Female, 54 years old. Abnormal screening mammogram. TECHNIQUE: Axial and longitudinal images of the LEFT breast were performed with a high resolution ultrasound transducer. # OF IMAGES: 9 COMPARISON: Comparison is made with prior mammogram dated 06/24/2020. FINDINGS: LEFT Breast: The inferior medial portion of the left breast was examined by ultrasound. The mammographic abnormality corresponds to a 5 mm x 4 mm x 4 mm cyst at the 7 o''clock position of the breast at 3 cm from nipple. US/Breast Limited Unilateral IMPRESSION: The mammographic abnormality corresponds to a 5 mm x 4 mm x 4 mm cyst at the 7 o''clock position of the breast at 3 cm from the nipple. ASSESSMENT CATEGORY: BIRADS Category 2: Benign. A letter regarding these results will be sent to the patient by the facility within 30 days. Electronically Signed: Rony Banegas MD at 13:30 EDT , Service support ,
== END ==
PROVIDERS: PCP Family Medicine; Referring Provider Nurse Practitioner Women's Health; Visit Provider Nurse Practitioner Women's Health
DX: R92.8 Other abnormal and inconclusive findings on diagnostic imaging of breast (principal)
CPT/HCPCS: 76642

== ENCOUNTER 2020-08-05 08:26 | Day surgery (SDC) | payer OTHER, SELFPAY ==
[2020-06-25 08:57] VITALS: BMI 29.5
[2020-08-05] VITALS (7 sets, daily range): BP systolic 104–130; BP diastolic 61–91; PULSE 69–86; RESP 16; TEMP 36.3–36.6; O2SAT 93–96; BMI 29.9
--- NOTE | 2020-08-05 | IMM_PTH ---
PATIENT: OLIVIA SALINAS LOC: [facility] U#:[id number] AGE/SX: 54/F ROOM: RE08/05/[address]: Dr. Brooke Deras MD : 1965 BED: DIS: 08/05/2020 SPEC #: [id number] RECD: 08/06/20 13:13 STATUS: CATHERINE REQ #: [id number] NATHAN: 08/05/20 00:[address]: Brooke Deras DEPT: IMMUNOHISTOCHEMISTRY RECD BY: Rachel Stephenson ENTERED: 08/06/20 13:15 SP TYPE: IMMUNO OTHR DR: Dr. Roni Bowman MD Tissues: B - Uterine cervix, NOS Procedures: p16 (initial) KI-67 (add) P16 (add) PHYSICIAN & INSTITUTION [place] [address] SPECIMEN INFORMATION: Tissue Source: B - Cervix, cold knife conization Clinical Info: SUMAN III with severe dysplasia Specimen Number: [id number] B3 & B4 CPT code: 35699, 96181 x3 METHODOLOGY: Deparaffinized sections of prefer/formalin-fixed tissue or PAP/DQ stained slides are incubated with monoclonal/polyclonal antibodies/oligonucleotide probes. Localization is made via biotin free immunoperoxidase method. Appropriate controls are performed and reacted as expected. Results on target cell population are indicated in the following table: RESULTS: ANTIBODY / CLONE RESULT Block B3 P16 (E6H4) positive, focal block-like Ki-67 (30-9) positive, moderate Block B4 P16 (E6H4) negative Ki-67 (30-9) negative These tests were developed and their performance characteristics determined by [facility]. They may not have been cleared or approved by the U.S. Food and Drug Administration. The FDA has determined that such clearance or approval is not necessary. The above immunohistochemical/dualISH markers are ordered and reviewed by the Pathologist. INTERPRETATION: Austyn Cervix, cold knife conization: Focal moderate squamous dysplasia, SUMAN 2 (HSIL). AM:nae 08/07/2020
[2020-08-05] MEDS: Lactated Ringers 1,000 ML 100 ML IV (08:50)
--- NOTE | 2020-08-05 09:20 | PCM.HP.OB ---
HPI - General HPI Narrative OLIVIA SALINAS, is a 54 F who presents for cold knife conization for severe cervical dysplasia with positive ECC PFSH PFSH Medical History (Updated 07/29/20 @ 13:15 by Janett Reis) Alcohol use Anxiety and depression Cardiology follow-up encounter Cholelithiasis Chronic neck and back pain Heartburn History of ischemic colitis History of stress test History of stroke Injury of head and neck Post-menopausal Smoker TIA (transient ischemic attack) Home Medications acetaminophen 500 mg tablet 1,000 mg PO DAILY PRN tab 12/19/19 [History Last Taken Unknown] desvenlafaxine 100 mg tablet,extended release 24 hr 100 mg PO DAILY 12/19/19 [History Last Taken Unknown] ibuprofen 800 mg tablet 800 mg PO DAILY PRN tab 12/19/19 [History Last Taken Unknown] calcium carbonate [Tums] 300 mg PO BID PRN 07/29/20 [History Last Taken Unknown] Allergy/AdvReac Type Severity Reaction Status Date / Time Sulfa (Sulfonamide AdvReac Swelling Verified 07/29/20 13:05 Antibiotics) Family History Aunt Breast cancer Grandfather Colon cancer Mother Cancer kidney cancer Hypertension Kidney disease Father Diabetes Surgical History (Updated 07/29/20 @ 13:15 by Janett Reis) History of esophagogastroduodenoscopy (EGD) History of heart surgery Hx of dilation and curettage Hx of LASIK Social History household members: none current occupational status: employed 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 Date Name GA/Weeks Outcome Route Bth Weight Infant Gen Labor Lgth Anesthesia Del Locatn Provider FOB Unknown 2004 ROS Eyes Eyes: Reports systems reviewed and no addt'l complaints, except as documented ENT HEENT: Reports systems reviewed and no addt'l complaints, except as documented Cardiovascular Cardiovascular: Reports systems reviewed and no addt'l complaints, except as documented Respiratory/Chest Respiratory/Chest: Reports systems reviewed and no addt'l complaints, except as documented Gastrointestinal Gastrointestinal: Reports systems reviewed and no addt'l complaints, except as documented Genitourinary Genitourinary: Reports systems reviewed and no addt'l complaints, except as documented Musculoskeletal Musculoskeletal: Reports systems reviewed and no addt'l complaints, except as documented Integumentary Integumentary: Reports systems reviewed and no addt'l complaints, except as documented Neurologic Neurologic: Reports systems reviewed and no addt'l complaints, except as documented Psychiatric Psychiatric: Reports systems reviewed and no addt'l complaints, except as documented Endocrine Endocrinology: Reports systems reviewed and no addt'l complaints, except as documented Hematologic/Lymphatic Hematologic/Lymphatic: Reports systems reviewed and no addt'l complaints, except as documented Allergic/Immunologic Allergic/Immunologic: Reports systems reviewed and no addt'l complaints, except as documented Vital Signs Vital Signs Vital Signs: 08/05/20 09:10 Temperature 97.8 F Temperature Source Temporal Pulse Rate 86 Respiratory Rate 16 Respiratory Pattern Normal Blood Pressure 130/91 H Blood Pressure Mean 104 Blood Pressure Source Monitor Blood Pressure Position Semi-Fowlers Pulse Ox 93 Oxygen Delivery Method Room Air Weight Weight: 179 lb 14.355 oz Body Mass Index (BMI) 29.9 Physical Exam Const alert, oriented x3, no apparent distress, average body habitus, healthy appearing and well nourished HEENT normocephalic and moist oral mucous membranes Head and Scalp: atraumatic Eyes PERRL and EOMs intact bilaterally Neck full ROM Resp normal respiratory effort, no retractions and no use of accessory muscles Cardio regular rate and regular rhythm GI soft to palpation, non-tender and non-distended Extremity normal to inspection and full ROM Skin no rashes or lesions noted Neuro no focal motor deficits and no sensory deficits noted Psych mental status grossly normal, affect normal, speech normal and activity/motor behavior normal Labs Labs Labs: Blood Type O POSITIVE Antibody Screen NEGATIVE Hct 44.0 % (37-47) Hgb 13.9 g/dL (12.0-15.0) Rubella IgG Antibody 82.5 IU/mL Assessment & Plan (1) SUMAN III (cervical intraepithelial neoplasia grade III) with severe dysplasia: PLAN: Patient presents for cold knife conization following colposcopy showing biopsies with moderate to severe dysplasia with ECC with severe dysplasia Discussed that with +ECC with severe dysplasia, recommend cold knife cone to ensure adequate margins The risks, benefits, indications, and alternatives to the procedure were discussed with the patient including bleeding, infection, and damage to surrounding structures. Agreeable to blood products if medically necessary. Discussed risk of infection relatively low, but would typically present with foul smelling discharge or fevers after delivery. Discussed risk of damage to cervix and uterus. Discussed that this can rarely result in excessive bleeding that could potentially result in need for hysterectomy. Medical and surgical history reviewed and noncontributory
--- NOTE | 2020-08-05 09:32 | PCM.DC ---
Discharge Instructions Diet Discharge Diet: No restrictions Activity Discharge Activity: Return to Normal Activity and May Not Drive (while taking narcotic pain medications.) May resume sexual activity in: 4 weeks (nothing in the vagina for 4 weeks.) Dressing / Incision Call your doctor if your incision/area has: Continuous Slow Oozing, Sudden Increased Bleeding and Foul Smelling Discharge Call your doctor if you observe: Fever of 101 or Higher, Using more than 1 pad per hour, Dizziness and Uncontrolled pain Follow Up Care Please Follow Up With: Brooke Deras MD When: 2 weeks Test Results: Test results from this visit will be discussed in further detail at your follow-up appointment, if applicable. Discharge Plan Admission Primary Reason for Your Visit: Cold Knife Conization Attending Provider: Brooke Deras Primary Care Provider: Christopher Bowman Instructions Patient Instructions: After a Cone Biopsy Discharge Orders/Prescriptions Prescriptions: New ibuprofen 800 mg tablet 800 mg PO Q8H PRN (Reason: pain) Qty: 30 RF: 1 oxycodone 5 mg capsule 5 mg PO Q6H PRN (Reason: pain) 2 Days Qty: 5 RF: 0 Continued desvenlafaxine 100 mg tablet extended release 24 hr 100 mg PO DAILY RF: 0 acetaminophen [Tylenol Extra Strength] 500 mg tablet 1,000 mg PO DAILY PRN (Reason: Pain 1-10 Or Fever) RF: 0 calcium carbonate [Tums] 300 mg (750 mg) Tablet,Chewable 300 mg PO BID PRN (Reason: Indigestion) RF: 0 Discontinued ibuprofen 800 mg tablet 800 mg PO DAILY PRN (Reason: pain) RF: 0 Other Ambulatory Orders: CBC-Complete Blood Cnt No Diff (Routine) Timeframe: 20200805 Facility: [facility] - Location: Laboratory Ordered By: Dr. Brooke Deras Type & Screen - PAT ONLY (Routine) Timeframe: 20200805 Facility: [facility] - Location: Laboratory Ordered By: Dr. Brooke Deras Referrals / Follow Up: Christopher Bowman MD [Primary Care Provider] - Disposition Disposition (needs filled in before D/C Order can be placed): Home, Self Care
[2020-08-05] MEDS: Lidocaine 1% /Epi 1:100 (20ml) 20 ML Vial (09:56)
[2020-08-05] MEDS: Iodine/Potassium Iodide 14ML Bottle 1 DRP TOPICAL (09:56)
--- NOTE | 2020-08-05 10:00 | EMB_PTH ---
PATIENT: OLIVIA SALINAS LOC: [facility] [place][id number] AGE/SX: 54/F ROOM: RE08/05/[address]: Dr. Brooke Deras MD : 1965 BED: DIS: 08/05/2020 SPEC #: [id number] RECD: 08/05/20 11:02 STATUS: CATHERINE TORRES #: [id number] NATHAN: 08/05/20 10:[address]: Brooke Deras DEPT: SURGICAL PATHOLOGY RECD BY: Holly Chilel ENTERED: 08/05/20 11:36 SP TYPE: ENDOM BX/C JOSE DR: Dr. Roni Bowman MD Tissues: Endometrium, NOS Procedures: Surgery Specimen Level IV HEADER OPERATION: Cold knife cone PRE-OP DIAGNOSIS: SUMAN III with severe dysplasia TISSUE SUBMITTED: A ? Endometrial curettings, B ? Cold knife cone MICROSCOPIC DIAGNOSIS A. Endometrium, curettings: Rare strips of benign glandular mucosa. B. Cervix, cold cone conization: Focal moderate squamous dysplasia. CIN2 (HSIL). Squamous metaplasia with mild chronic inflammation and nabothian cysts. See comment. AM:nae 08/06/2020 COMMENT B. Dysplasia does not involve surgical margins of excision. Clinical correlation is suggested. Results from immunohistochemistry ([id number]) for surrogate HPV marker (p16) will be reported separately. MICROSCOPIC DESCRIPTION Slides are reviewed. GROSS DESCRIPTION A - Received in fixative is one container labeled with the patient's name and designated ECC. The specimen consists of scant fragments of hemorrhagic mucoid tissue that in aggregate measure 0.5 x 0.5 x 0.1 cm. The specimen predominantly consists of mucoid tissue. The specimen is totally submitted in one cassette. B - Received in fixative is one container labeled with the patient's name and designated cold knife cone. The specimen consists of a piece of brown, indurated tissue consistent with cold conization measuring 2.5 x 2 x 1 cm. No mucosal lesion is identified. The specimen is not oriented. Nonmucosal surface is inked black. The specimen is radially sectioned and submitted entirely in four cassettes with each cassette containing one quadrant. / AVANI:nae 08/05/20 TC:3 CPT: 50783 x2
[2020-08-05] MEDS: FERRIC SUBSULFATE 8 GM SOLN (10:14)
--- NOTE | 2020-08-05 10:28 | PCM.OPRPT ---
Problems Associated Problem List Diagnoses (1) SUMAN III (cervical intraepithelial neoplasia grade III) with severe dysplasia: Report of Operation Date of Procedure: 08/05/20 Pre-Operative Diagnosis: SUMAN 3, positive ECC Post-Operative Diagnosis: Same Surgery/Procedure Performed:: Cold knife conization Description of Surgical Findings:: Nonstaining area from 10:00 to 2:00 with Lugol's solution. Otherwise normal-appearing cervix. Surgeon: Brooke Deras epoxy coatings installer: None Type of Anesthesia: MAC/Supplemental Special Medications: Lugol solution, monsel's solution, 1% lidocaine with epinephrine Specimen's removed: Coronary conization, ECC Estimated Blood Loss (mL): 25 cc Description of Procedure: The patient was taken to the operating room where anesthesia was obtained without difficulty. She was prepped and draped in the dorsolithotomy position with yellowfin stirrups. A insulated speculum was placed in the vagina and the cervix was fully visualized. Lugol's solution was applied to the cervix and nonstaining areas were noted as above. Stay sutures of 0 Vicryl were placed at 3:00 and 9:00. The cervix was injected with 10 cc of 1% lidocaine with epinephrine. The conization was then performed using the scalpel. An ECC was then performed. The Bovie was then used to obtain hemostasis. Monsel solution was then applied to the bed of the cone. Surgicel snow was then placed in the cone bed. The procedure was deemed complete. All counts were correct x2. The patient was awakened from anesthesia and taken to recovery in stable condition. Complications None Admit VTE Documentation VTE Present on Admission: No VTE Mechan Device Prophylaxis: SCD's VTE Pharm Prophylaxis ordered?: No Procedures Urinary/Genital 52xxx-[id number]: [id number] Cervical conization
== END 2020-08-05 12:34 | disposition home or self-care (01) ==
LOC: SDC 08:27 → AC 08:39
PROVIDERS: PCP Family Medicine; Referring Provider Obstetrics & Gynecology; Visit Provider Obstetrics & Gynecology
PROC: 0UBC7ZZ Excision of Cervix, Via Natural or Artificial Opening (ICD-10-PCS; CPT 57520; principal; 2020-08-05 09:45)
DX: D06.9 Carcinoma in situ of cervix, unspecified (principal); G89.29 Other chronic pain; M54.2 Cervicalgia; M54.9 Dorsalgia, unspecified; F32.9 Major depressive disorder, single episode, unspecified; F41.9 Anxiety disorder, unspecified; F17.210 Nicotine dependence, cigarettes, uncomplicated; Z78.0 Asymptomatic menopausal state; Z79.899 Other long term (current) drug therapy; Z86.73 Personal history of transient ischemic attack (TIA), and cerebral infarction without residual deficits
CPT/HCPCS: 57520; 88305; 88341; 88342; J7120; J2405

== ENCOUNTER 2021-03-31 12:59 | Outpatient (CLI) | payer OTHER, SELFPAY ==
[2021-04-07 10:23] LABS: HPV APTIMA, High Risk Negative (Negative)
== END 2021-03-31 23:59 | disposition home or self-care (01) ==
LOC: LABSPEC 13:00
PROVIDERS: PCP Family Medicine; Visit Provider Nurse Practitioner Women's Health
DX: D06.9 Carcinoma in situ of cervix, unspecified (principal)
CPT/HCPCS: 87624; 88175; G0145

== ENCOUNTER → 2021-06-26 | Outpatient (CLI) | payer OTHER, SELFPAY ==
--- NOTE | 2021-06-26 08:40 | BI_ITS ---
MAMMOGRAPHY - BILATERAL SCREENING REASON FOR EXAM: Female, 55 years old. Routine annual screening examination. PERTINENT HISTORY: Aunt with breast cancer. TECHNIQUE: Digital bilateral breast litzy (3D mammographic acquisition) in the CC and MLO projections. 2-D mediolateral oblique (MLO) and craniocaudad (CC) views of both breasts were obtained. CAD: Full Field Digital Mammography with Computer Added Detection was performed. COMPARISON: Comparison is made with prior study dated 06/24/2020. FINDINGS: Breast Composition: The breasts are heterogeneously dense, which may obscure small masses. There are no dominant masses or suspicious calcifications. Stable 4.6 mm x 5 mm well-defined nodule in the inferior medial aspect of the left breast. This was demonstrated to be a small cyst on prior sonogram. No other significant abnormalities are identified. There has been no significant change since the prior study. BI/SCRN MAMM (CAD)W/LITZY BILAT IMPRESSION: Stable bilateral screening mammogram. Yearly follow-up mammogram recommended. (A) ASSESSMENT CATEGORY: BIRADS Category 2: Benign. A letter regarding these results will be sent to the patient by the facility within 30 days. Approximately 10% of breast cancers are not detected by mammography. A normal mammogram should not delay biopsy of a clinically suspicious abnormality. [id number] Electronically Signed: Rony Banegas MD at 9:52 EDT ,
== END | disposition home or self-care (01) ==
LOC: OPBI 08:39
PROVIDERS: PCP Family Medicine; Visit Provider Nurse Practitioner Women's Health
DX: Z12.31 Encounter for screening mammogram for malignant neoplasm of breast (principal)
CPT/HCPCS: 77063; 77067

== ENCOUNTER → 2022-04-05 | Outpatient (CLI) | payer OTHER, SELFPAY ==
[2022-04-14 03:35] LABS: HPV Genotype 16, Aptima Negative (Negative)
[2022-04-14 13:05] LABS: HPV APTIMA, High Risk Positive (Negative); HPV Genotype 18,45 Aptima Negative (Negative)
== END | disposition home or self-care (01) ==
LOC: LABSPEC 16:35
PROVIDERS: PCP Family Medicine; Referring Provider Nurse Practitioner Women's Health; Visit Provider Nurse Practitioner Women's Health
DX: Z12.4 Encounter for screening for malignant neoplasm of cervix (principal)
CPT/HCPCS: 87624; 88175; G0145

== ENCOUNTER → 2022-06-28 | Outpatient (CLI) | payer OTHER, SELFPAY ==
--- NOTE | 2022-06-28 13:34 | BI_ITS ---
MAMMOGRAPHY - BILATERAL SCREENING REASON FOR EXAM: Female, 56 years old. Routine annual screening examination. PERTINENT HISTORY: Aunt with breast cancer. TECHNIQUE: Digital bilateral breast litzy (3D mammographic acquisition) in the CC and MLO projections. 2-D mediolateral oblique (MLO) and craniocaudad (CC) views of both breasts were obtained. CAD: Full Field Digital Mammography with Computer Added Detection was performed. COMPARISON: Comparison is made with prior study of June 26, 2021 and June 24, 2000. FINDINGS: Breast Composition: The breasts are heterogeneously dense, which may obscure small masses. There are no dominant masses or suspicious calcifications. Stable 4.6 mm x 5 mm well-defined nodule in the inferior medial aspect of the left breast. Prior sonogram demonstrated this nodule to be a small cyst. No other significant abnormalities are identified. There has been no significant change since the prior study. BI/SCRN MAMM (CAD)W/LITZY BILAT IMPRESSION: Stable bilateral screening mammogram. Yearly follow-up mammogram recommended. (A) ASSESSMENT CATEGORY: BIRADS Category 2: Benign. A letter regarding these results will be sent to the patient by the facility within 30 days. Approximately 10% of breast cancers are not detected by mammography. A normal mammogram should not delay biopsy of a clinically suspicious abnormality. [id number] Electronically Signed: Rony Banegas MD at 8:39 EDT ,
== END | disposition home or self-care (01) ==
LOC: OPBI 13:33
PROVIDERS: PCP Family Medicine; Referring Provider Nurse Practitioner Women's Health; Visit Provider Nurse Practitioner Women's Health
DX: Z12.31 Encounter for screening mammogram for malignant neoplasm of breast (principal); Z80.3 Family history of malignant neoplasm of breast
CPT/HCPCS: 77063; 77067

== ENCOUNTER → 2022-07-07 | Outpatient (CLI) | payer OTHER, SELFPAY ==
--- NOTE | 2022-07-07 12:58 | ECHOD_ITS ---
Version 2 Reason For Study: VSD Procedure This was a 2D Doppler, Color Flow transthoracic echocardiogram. Exam performed in department. Left Ventricle Normal LV size. Left ventricular systolic function is normal. The estimated ejection fraction is 55 %. Stage 1 diastolic dysfunction. No regional wall motion abnormalities noted. Right Ventricle Normal RV size. Normal systolic function. Atria Normal left atrium. Normal right atrium. Mitral Valve Normal mitral valve. Tricuspid Valve Normal tricuspid valve. Aortic Valve Trisinus/trileaflet aortic valve. Pulmonic Valve Normal pulmonic valve. Great Vessels Mildly dilated aortic root. The pulmonary artery is normal size. Normal inferior vena cava. Pericardium/Pleural No pericardial effusion. MMode/2D Measurements & Calculations LVIDd: 3.5 cm IVSd: 1.0 cm Ao root diam: 3.7 cm LVIDs: 3.0 cm LVPWd: 1.2 cm RVDd: 2.3 cm FS: 14.3 % LAV(MOD-sp4): 13.9 ml LVAd ap4: 18.0 cm2 SV(MOD-sp4): 22.7 ml LVLd ap4: 6.8 cm EDV(MOD-sp4): 40.5 ml EDV(sp4-el): 40.9 ml LVAs ap4: 11.0 cm2 LVLs ap4: 5.8 cm ESV(MOD-sp4): 17.9 ml ESV(sp4-el): 17.7 ml EF(MOD-sp4): 55.9 % EF(sp4-el): 56.8 % SV(sp4-el): 23.2 ml LA A4 area: 7.3 cm2 LA dimension(2D): 2.5 cm RA A4 area: 11.4 cm2 Time Measurements MV dec time: 0.21 sec Doppler Measurements & Calculations MV E max bernabe: 56.2 cm/sec Lat Peak E' Bernabe: 9.7 cm/sec Med Peak E' Bernabe: 5.8 cm/sec MV A max bernabe: 72.2 cm/sec E/E' lat: 5.8 E/E' med: 9.7 MV E/A: 0.78 MV V2 max: 73.4 cm/sec Ao V2 max: 109.2 cm/sec MV max P.2 mmHg MV dec slope: 266.5 cm/sec2 Ao max P.8 mmHg MV V2 mean: 46.3 cm/sec Ao V2 mean: 80.4 cm/sec MV mean P.92 mmHg Ao mean P.8 mmHg MV V2 VTI: 23.6 cm Ao V2 VTI: 21.1 cm AV (velocity ratio): 0.87 LV V1 max: 86.6 cm/sec PA V2 max: 85.4 cm/sec LV V1 max P.0 mmHg PA V2 mean: 67.7 cm/sec LV V1 mean P.7 mmHg LV V1 mean: 61.3 cm/sec LV V1 VTI: 18.3 cm ECHO/Echo Complete Interpretation Summary Normal LV size. Left ventricular systolic function is normal. The estimated ejection fraction is 55 %. Stage 1 diastolic dysfunction. Mildly dilated aortic root. No obvious VSD noted Ordering Physician: Christopher Bowman Referring Physician: Christopher Bowman Performed By: Yesi Ellington RCS
== END | disposition home or self-care (01) ==
LOC: CVS 12:57
PROVIDERS: PCP Family Medicine; Referring Provider Family Medicine; Visit Provider Family Medicine
DX: Q21.0 Ventricular septal defect (principal)
CPT/HCPCS: 93306

== ENCOUNTER → 2023-04-06 | Outpatient (CLI) | payer OTHER, SELFPAY ==
--- OUTSIDE RECORDS SUMMARY | 2023-04-06 19:57 | XMS RPT_ITS | CCD ---
Author Name Unknown Address [address] [place] [address] Organization [facility] Care Team Providers Care [employer] Jig Grinder Name Role Phone TRINY, SONAM P Unavailable Unavailable KWESI DOWER B Unavailable Unavailabl e AZZAM, RAED Unavailable Unavailable PADPIERCE GAYTAN Unavailable Unavailable TRINY, SONAM P Unavailable Unavailable KATIE DOW B Unavailable Unavailabl e JOHANNE, PIERCE Unavailable Unavailable PIERCE WHITING Unavailable Unavailable KATIE DOW B Unavailable Unavailabl ANNETTE Troy Unavailable Unavailable KATIE DOW Unavailable Unavailabl e MAURIZIO GARAY Unavailable Unavailable TRINY, SONAM P Unavailable Unavailable TRINY, SONAM P Unavailable Unavailable VICTOR M, JOSEOPHER B Unavailable Unavailabl e TRINY, SONAM P Unavailable Unavailable VICTOR M, JOSEOPHER B Unavailable Unavailabl e VICTOR M, CHRISTOPHER B Unavailable Unavailabl e AZZAM, RAED Unavailable Unavailable AZZAM, RAED Unavailable Unavailable NO REFERRING Unavailable Unavailable Angelito Nunez Primary Care Provider Guilherme Lara Primary Care Provider Allergies Allergy Classification Reported Allergen(s) Allergy Type Date of Onset Reaction(s) Facility (1 source) SULFA ANTIBIOTICS; Translations: [SULFA ANTIBIOTICS] Propensity to adverse reactions to drug (disorder) 7 [facility] Repository (1 source) Sulfonamides (Antibiotic); Translations: [ SULFA] Propensity to adverse reactions (disorder) [facility] Repository (1 source) Sulfonamides (Antibiotic); Translations: [SULFA] Propensity to adverse reactions (disorder) [facility] Repository (1 source) Sulfonamides (Antibiotic) Drug Intolerance 5 [facility] Problems Active Problems Problem Classification Problem Date Documented Da te Episodic/Chronic Acute cerebrovascular disease (3 sources) 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; Translations: [CEREB INF THROMB RT CERE] Onset: 06-30-2016 Chronic Headache, including migraine (1 source) Migraine without aura, not intractable, without status migrainosus; Translations: [MIGRAINE W/O AURA NOT IN] Onset: 06-30-2016 Chronic Past or Other Problems Problem Classification Problem Date Documented Da te Episodic/Chronic Fracture of lower limb (1 source) Closed fracture of metatarsal bone; Translations: [Closed fracture of metatarsal bone(s)] Onset: 07-09-2005 07-09-2005 Episodic Results Test Name Value Interpretation Reference Range Facil ity Encounters Encounter Date Encounter Type Care Provider Facility Start: 04-01-2017 End: 04-01-[address] [facility] Start: 11-04-2016 End: 11-04-2016 [facility] Start: 10-04-2016 End: 10-05-2016 Ambulatory [facility] Start: 09-27-2016 End: 09-28-2016 Ambulatory [facility] Start: 09-27-2016 End: 09-27-2016 Ambulatory [facility] Start: 08-26-2016 End: 08-26-[address] [facility] Start: 06-30-2016 End: 07-01-2016 Ambulatory NATHALY SALINAS Facility:[facility] Start: 03-16-2003 End: 03-16-2003 Patient encounter procedure Maurizio Charles Work Phone: [facility] Start: 03-16-2003 Results Only Maurizio hood Work Phone: [facility] Procedures Date Procedure Procedure Detail Performing Clinician Start: 12-20-2014 Mammography Maurizio castillo Start: 03-16-2003 CONVERTED SURGICAL PATHOLOGY Maurizio Charles Work Phone: Plan of Treatment Date Care Activity Detail Author Start: 10-16-2019 Influenza vaccination INFLUENZA (#1) [facility] Start: 10-30-2018 DIABETES SCREEN DIABETES SCREEN [facility] Start: 08-10-2017 SHINGRIX VACCINE (1 of 2) DAVID GRIX VACCINE (1 of 2) [facility] Start: 08-10-2017 Tuberculosis screening COLOREC FUNMILAYO CANCER SCREENING,SEE MODIFIER [facility] Start: 12-21-2015 Mammography MAMMOGRAM [facility] Start: 08-10-2012 LIPID SCREEN LIPID SCREEN [facility] Start: 08-10-1997 HPV TESTING HPV TESTING [facility] Start: 08-10-1988 PAP TESTING PAP TESTING [facility] Start: 08-10-1986 Urine microalbumin profile DTAP,TDAP ,TD (1 - Tdap) [facility] Start: 08-10-1985 HEPATITIS C SCREENING HEPATITIS C SC REENING [facility] Start: 08-10-1985 HIV SCREENING HIV SCREENING [facility] Payers Date Payer Category Payer Policy ID Private Health Insurance [id number] Social History Date Type Detail Facility Tobacco smoking status NHIS Unknown if ev er smoked [facility] Sex Assigned At Not on file [facility] Summary Purpose Family History No Family History Records FoundNo Family History Records Found Advance Directives No Advanced Directives Records FoundNo Advanced Directives Records Found Additional Source Comments INFORMATION SOURCE (unrecogn ized section and content) DATE CREATED AUTHOR AUTHOR'S ORGANIZ ATION 08/10/2017 [facility] Source Comments (unrecognize d section and content) In the event this informatio n is protected by the Federal Confidentiality of Alcohol and Drug Abuse Patient Records regulations: The Federal rules restrict any use of the information to criminally investigate or prosecute any alcohol or drug abuse patient.[facility] FOR RECORDS PERTAINING TO PATIENTS WHO ARE OR HAVE BEEN ENROLLED IN A CHEMICAL DEPENDENCY/SUBSTANCEABUSE PROGRAM, SOME INFORMATION MAY BE OMITTED. This clinical summary was aggregated from multiple sources. Caution should be exercised in using it in the provision of clinical care. This summary normalizes information from multiple sources, and as a consequence, information in this document may materially change the coding, format and clinical context of patient data. In addition, data may be omitted in some cases. CLINICAL DECISIONS SHOULD BE BASED ON THE PRIMARY CLINICAL RECORDS. [facility] [facility]. provides no warranty or guarantee of the accuracy or completeness of information in this document.
[2023-04-13 10:09] LABS: HPV APTIMA, High Risk Negative (Negative)
== END | disposition home or self-care (01) ==
PROVIDERS: PCP Family Medicine; Visit Provider Nurse Practitioner Women's Health
DX: Z12.4 Encounter for screening for malignant neoplasm of cervix (principal); D06.9 Carcinoma in situ of cervix, unspecified
CPT/HCPCS: 87624; 88175; G0145

== ENCOUNTER → 2023-06-30 | Outpatient (CLI) | payer OTHER, SELFPAY ==
--- NOTE | 2023-06-30 11:58 | BI_ITS ---
MAMMOGRAPHY - BILATERAL SCREENING REASON FOR EXAM: Female, 57 years old. Routine annual screening examination. PERTINENT HISTORY: Aunt with breast cancer. TECHNIQUE: Digital bilateral breast litzy (3D mammographic acquisition) in the CC and MLO projections. 2-D mediolateral oblique (MLO) and craniocaudad (CC) views of both breasts were obtained. CAD: Full Field Digital Mammography with Computer Added Detection was performed. COMPARISON: Comparison is made with prior study June 28, 2022 and June 26, 2021. FINDINGS: Breast Composition: The breasts are heterogeneously dense, which may obscure small masses. There is a well-defined 7 mm x 6.2 mm nodule central deep portion of the left breast. Correlation with ultrasound is recommended. No other significant abnormalities are identified. BI/SCRN MAMM (CAD)W/LITZY BILAT IMPRESSION: 7 mm x 6.2 mm well-defined nodule in the central deep portion of the left breast. Correlation with ultrasound is recommended. ASSESSMENT CATEGORY: BIRADS Category 0: Incomplete. Need additional imaging evaluation. A letter regarding these results will be sent to the patient by the facility within 30 days. Approximately 10% of breast cancers are not detected by mammography. A normal mammogram should not delay biopsy of a clinically suspicious abnormality. [id number] Electronically Signed: Rony Banegas MD at 12:44 EDT ,
== END | disposition home or self-care (01) ==
LOC: OPBI 11:58
PROVIDERS: PCP Family Medicine; Referring Provider Nurse Practitioner Women's Health; Visit Provider Nurse Practitioner Women's Health
DX: Z12.31 Encounter for screening mammogram for malignant neoplasm of breast (principal)
CPT/HCPCS: 77063; 77067

== ENCOUNTER → 2023-07-08 | Outpatient (CLI) | payer OTHER, SELFPAY ==
--- NOTE | 2023-07-08 07:56 | US_ITS ---
STUDY: ULTRASOUND BREAST - LEFT REASON FOR EXAM: Female, 57 years old. Abnormal screening mammogram. TECHNIQUE: Axial and longitudinal images of the LEFT breast were performed with a high resolution ultrasound transducer. # OF IMAGES: 23 COMPARISON: Screening mammogram 06/30/2023 FINDINGS: LEFT Breast: Heterogeneous background echotexture. At 12:00, 3 cm from nipple, ultrasound confirms a 7 mm oval parallel circumscribed anechoic mass with posterior enhancement consistent with a cyst. Furthermore, there are smaller adjacent cysts within some dense breast parenchyma most consistent with fibrocystic change.: US/Breast Limited Unilateral IMPRESSION: Ultrasound confirms fibrocystic change corresponding to the mass seen on mammography. ASSESSMENT CATEGORY: BIRADS Category 2: Benign. A letter regarding these results will be sent to the patient by the facility within 30 days. Electronically Signed: Tonio Bar MD at 9:25 EDT ,
== END | disposition home or self-care (01) ==
LOC: OPUS 07:54
PROVIDERS: PCP Family Medicine; Referring Provider Nurse Practitioner Women's Health; Visit Provider Nurse Practitioner Women's Health
DX: R92.8 Other abnormal and inconclusive findings on diagnostic imaging of breast (principal)
CPT/HCPCS: 76642

== ENCOUNTER → 2024-02-16 | Outpatient (CLI) | payer OTHER, SELFPAY ==
--- NOTE | 2024-02-16 16:02 | RAD_ITS ---
STUDY: X-RAY - LEFT ELBOW REASON FOR EXAM: Female, 58 years old. Fall. ? loose body over olecranon. TECHNIQUE: 3 views of the left elbow. COMPARISON: None. FINDINGS: Normal visualized humerus, radius and ulna. Normal radiocapitellar and ulnotrochlear articulations. The soft tissue structures are unremarkable. There is no demonstrated fracture. RAD/Elbow min 3 Views IMPRESSION: Normal x-ray examination of the left elbow. Electronically Signed: Adrien Blair MD at 10:12 EST ,
== END | disposition home or self-care (01) ==
PROVIDERS: PCP Family Medicine; Referring Provider Family Medicine; Visit Provider Family Medicine
DX: M70.22 Olecranon bursitis, left elbow (principal)
CPT/HCPCS: 73080

== ENCOUNTER → 2024-04-24 | Outpatient (CLI) | payer OTHER, SELFPAY ==
[2024-04-30 14:08] LABS: HPV APTIMA, High Risk Negative (Negative)
== END | disposition home or self-care (01) ==
LOC: LABSPEC 15:11
PROVIDERS: PCP Family Medicine; Referring Provider Nurse Practitioner Women's Health; Visit Provider Nurse Practitioner Women's Health
DX: D06.9 Carcinoma in situ of cervix, unspecified (principal); Z12.4 Encounter for screening for malignant neoplasm of cervix
CPT/HCPCS: 87624; 88175; G0145

== ENCOUNTER → 2024-07-02 | Outpatient (CLI) | payer OTHER, SELFPAY ==
--- NOTE | 2024-07-02 14:45 | BI_ITS ---
EXAM: SCRN MAMM (CAD)W/LITZY BILAT DATE: 07/02/2024 CLINICAL HISTORY: F, Age 58 y/o , SCREENING FOR BREAST CANCER BREAST CANCER RISK ASSESSMENT: Has not been calculated. TECHNIQUE: Bilateral screening digital breast tomosynthesis with 2D and 3D images. Computer aided detection. COMPARISON: Prior exam(s) dated 07/08/2023, 06/30/2023, and 06/28/2022. FINDINGS: TISSUE DENSITY: The breast tissue is composed of scattered area of fibroglandular density. Bilateral Breast Mammographic Findings: There are no suspicious masses, suspicious cluster of microcalcifications, architectural distortion or secondary signs of malignancy identified in either breast. Partially obscured, stable, isodense masses are seen in both breasts. Stable nodular densities are in both breasts. Benign-appearing round microcalcifications are seen in the right breast. BI/SCRN MAMM (CAD)W/LITZY BILAT IMPRESSION: OVERALL FINAL ASSESSMENT: BIRADS 2 BENIGN FINDING RECOMMENDATION: Routine annual follow-up in 1 Year A letter with findings and recommendations will be mailed to the patient. Reading Location: [id number]
== END | disposition home or self-care (01) ==
LOC: OPBI 14:38
PROVIDERS: PCP Family Medicine; Referring Provider Nurse Practitioner Women's Health; Visit Provider Nurse Practitioner Women's Health
DX: Z12.31 Encounter for screening mammogram for malignant neoplasm of breast (principal)
CPT/HCPCS: 77063; 77067

== ENCOUNTER → 2024-10-01 | Outpatient (CLI) | payer OTHER, SELFPAY ==
[2024-10-01 17:47] LABS: Hematocrit 43.0 % (37-47); Hemoglobin 14.6 g/dL (12.0-15.0); Immature Granulocytes Count 0.030 X10^3/uL (0.0-0.0); Mean Corp Hgb Conc 34.0 g/dL (32-36); Mean Corpuscular Volume 94.9 fL (81-99); Mean Platelet Vol. 10.2 fl (6.2-12.0); NRBC Flagged by Analyzer 0 % (0-5); Platelet Count 358 K/mm3 (150-450); RBC Distribution Width CV 12.6 % (11.6-14.6); RBC Distribution Width SD 43.8 fl (35.1-43.9); Red Blood Count 4.53 M/mm3 (4.2-5.4); White Blood Count 8.7 K/mm3 (4.4-11.0)
[2024-10-01 18:27] LABS: AST(SGOT) 19 U/L (<=31); Alanine Aminotransfer ALT/SGPT 16 U/L (<=34); Albumin, Serum 4.4 g/dL (3.5-5.0); Alkaline Phosphatase 70 U/L (35-104); Anion Gap 13 (5-15); BUN 12 mg/dL (4-19); BUN/Creat Ratio 13.5 RATIO (10-20); Calcium,Total 9.8 mg/dL (7.6-11.0); Carbon Dioxide 22.1 mmol/L (21.0-32.0); Chloride 102 mmol/L (98-108); Globulin 2.6 g/dL (2.2-4.2); Glucose 86 mg/dL (70-99); Potassium 4.0 mmol/L (3.3-5.1)
[2024-10-01 18:28] LABS: Follicle Stimulating Hormone 83.1 mIU/mL
== END | disposition home or self-care (01) ==
LOC: MTLAB 16:43
PROVIDERS: PCP Family Medicine; Referring Provider Family Medicine; Visit Provider Family Medicine
DX: N39.0 Urinary tract infection, site not specified (principal); L74.9 Eccrine sweat disorder, unspecified
CPT/HCPCS: 36415; 80053; 82670; 83001; 83002; 84443; 85025; 85652; 87086; 87088